=== PATIENT | female | born 1965 | race American Indian/Alaskan Native ===

== ENCOUNTER 2018-07-13 19:36 | Emergency (ER) | payer BC, MEDICAID ==
[2018-07-13 19:37] VITALS: BMI 38.7
[2018-07-13 19:53] VITALS: BP 135/81; PULSE 66; RESP 20; TEMP 98; O2SAT 98
[2018-07-13] MEDS: Naproxen 550 mg Tab PO STA (20:46)
[2018-07-13] MEDS ORDERED: Naproxen 550 mg Tab PO ONE (20:48)
--- NOTE | 2018-07-13 21:30 | C.PDOC ---
History Of Present Illness The patient reports several days history of left knee. The patient does not recall any injury, but states that pain is worsened with walking and prolonged standing. Denies numbness, weakness, rash, or redness. Time Seen by Provider: 07/13/18 20:13 Chief Complaint (Nursing): Lower Extremity Problem/Injury History Per: Patient History/Exam Limitations: no limitations Onset/Duration Of Symptoms: Persistent Current Symptoms Are (Timing): Still Present Pain Scale Rating Of: 5 Recent travel outside of the [place]: No - Knee Alleviating Factor(s): Ice Therapy, Elevation Past Medical History Vital Signs: Last Vital Signs Temp 98 F 07/13/18 19:48 Pulse 66 07/13/18 19:48 Resp 20 07/13/18 19:48 BP 135/81 07/13/18 19:48 Pulse Ox 98 07/13/18 19:48 - Medical History PMH: Asthma, Bronchitis Denies: Chronic Kidney Disease Surgical History: - [facility] COLONOSCOPY (02/05/15) ESOPHAGOGASTRODUODENOSCOPY [EGD] W/CLOSED BIOPSY (12/25/14) Family History: States: Unknown Family Hx - Social History Hx Tobacco Use: No Hx Alcohol Use: No Hx Substance Use: No - Immunization History Hx Tetanus Toxoid Vaccination: No Hx Influenza Vaccination: No Hx Pneumococcal Vaccination: No Review Of Systems Constitutional: Negative for: Fever, Weakness Eyes: Negative for: Pain Cardiovascular: Negative for: Chest Pain Respiratory: Negative for: Cough, Shortness of Breath Genitourinary: Negative for: Dysuria Musculoskeletal: Positive for: Other (knee pain) Skin: Negative for: Rash Neurological: Negative for: Weakness, Numbness Physical Exam - Physical Exam Appears: Non-toxic, No Acute Distress Skin: Normal Color, Warm, No Rash Head: Atraumatic, Normacephalic Eye(s): bilateral: Normal Inspection Oral Mucosa: Moist Neck: Normal ROM, Supple Chest: Symmetrical Extremity: No Calf Tenderness, No Deformity, Other ((+) swelling and tenderness to the anterior left knee. No erythema, fluctuance, effusion appreciated) Extremity: Bilateral: Normal Color And Temperature Pulses: Left Dorsalis Pedis: Normal, Right Dorsalis Pedis: Normal Neurological/Psych: Oriented x3, Normal Motor, Normal Sensation Gait: Steady ED Course And Treatment O2 Sat by Pulse Oximetry: 98 (on RA) Pulse Ox Interpretation: Normal Progress Note: Knee xrays were performed and are negative for fracture Disposition - Disposition Referrals: Bella Keys MD [Staff Provider] - Disposition: HOME/ ROUTINE Disposition Time: 21:33 Condition: STABLE Additional Instructions: Follow up with the Orthopedist within 1-2 days without fail. Return if worsened. Prescriptions: Naproxen [Naprosyn] 500 mg PO BID #20 tab Instructions: Knee Pain Forms: [facility] (Romanian), Work Excuse - Clinical Impression Clinical Impression: Knee pain
--- NOTE | 2018-07-14 08:55 | RAD ---
Date of service: 07/13/2018 PROCEDURE: Left Knee Radiographs. HISTORY: Pain. COMPARISON: None. FINDINGS: BONES: No fracture JOINTS: Mild-moderate arthrosis-medial femoral tibial compartment JOINT EFFUSION: None. OTHER FINDINGS: Quadriceps insertional enthesophyte IMPRESSION: No fracture or dislocation. 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
== END 2018-07-13 21:54 | disposition home or self-care (01) ==
LOC: C.ER 19:36
DX: M25.562 Pain in left knee (principal)